=== PATIENT | male | born 1955 | race African-American/Black ===

== ENCOUNTER 2022-05-21 11:14 | Inpatient (IN) | payer BC, MEDICARE ==
[~2022-05-21] VITALS: Ht 172.7 cm; Wt 73.5 kg
[2022-05-21] VITALS (36 sets, daily range): BP systolic 94–141; BP diastolic 60–96
[2022-05-21] MEDS ORDERED: VANCOMYCIN 1G PREMIX 200 ML IV ONE (11:30)
[2022-05-21] MEDS ORDERED: PIPERACILLIN/TAZ 3.375G PREMIX 50 ML IV ONE (11:30)
[2022-05-21] MEDS ORDERED: NOREPINEPHRINE 8 MG in DEXT 5% WATER 242 ML IV STA (11:42)
[2022-05-21] MEDS ORDERED: SODIUM CHLORIDE 0.9% 1000ML BAG (SEPSIS BOLUS) IV ONE (11:45)
[2022-05-21] MEDS ORDERED: LIDOCAINE HCL/PF 1% 10 MG/ML 5ML VIAL ONE (11:58)
[2022-05-21] MEDS ORDERED: NOREPINEPHRINE 8MG/250ML PMX 250 ML IV SCH ×2 (12:00→12:45)
[2022-05-21 12:01] LABS: BASOPHILS % 0.1 % (0.0-2.0); EOSINOPHILS % 0.1 % (0.0-5.0); LYMPHOCYTES % 12.5 % (20.0-50.0); MEAN CORPUSCULAR HEMOGLOBIN 35.9 pg (28.0-32.0); MEAN CORPUSCULAR VOLUME 105.6 fL (80.0-94.0); MEAN PLATELET VOLUME 7.1 fl (7.4-10.4); MONOCYTES % 7.5 % (2.0-8.0); NEUTROPHILS % 79.8 % (40.0-76.0); PLATELET 330 x1000/uL (130-400); RED BLOOD CELL COUNT 1.67 mill/uL (4.7-6.1); RED CELL DISTRIBUTION WIDTH 17.6 % (11.6-14.6)
[2022-05-21 12:09] LABS: CHLORIDE 106 mEq/L (98-107)
[2022-05-21 12:17] LABS: HEMATOCRIT. 17.6 % (42.0-52.0)
[2022-05-21] MEDS ORDERED: NOREPINEPHRINE 8MG/250ML PMX 250 ML IV PRN (12:45)
[2022-05-21 12:47] LABS: INR 1.1; PROTHROMBIN TIME 12.2 sec (9.6-11.0)
[2022-05-21] MEDS ORDERED: VANCOMYCIN 1G PREMIX 200 ML IV NR (13:00)
[2022-05-21 14:37] LABS: CLARITY URINE CLEAR (CLEAR); COLOR URINE YELLOW (YELLOW); KETONES URINE NEGATIVE (NEGATIVE); LEUKOCYTE ESTERASE URINE NEGATIVE (NEGATIVE); NITRITE URINE NEGATIVE (NEGATIVE); OCCULT BLOOD URINE NEGATIVE (NEGATIVE); PROTEIN URINE NEGATIVE (NEGATIVE); SPECIFIC GRAVITY URINE 1.013 (1.005-1.030); UROBILINOGEN URINE 0.2 E.U./dL (0.2-1.0)
[2022-05-21] MEDS ORDERED: ONDANSETRON HCL 4MG/2ML INJ IV PRN (15:45)
[2022-05-21] MEDS ORDERED: IPRATROPIUM/ALBUTEROL 0.5-3(2.5)MG/3ML NEB HHN PRN (15:45)
[2022-05-21] MEDS ORDERED: ACETAMINOPHEN 650MG/20.3ML UDC GT PRN (15:45)
[2022-05-21] MEDS ORDERED: PIPERACILLIN/TAZOBACTAM 3.375 G in DEXTROSE 5% WATER 50 ML IV SCH (15:45)
[2022-05-21] MEDS: PANTOPRAZOLE SODIUM 40 MG/VIAL IV SCH (15:45)
[2022-05-21] MEDS ORDERED: SODIUM CHLORIDE 0.9% 1,000 ML IV SCH (16:00)
[2022-05-21] MEDS ORDERED: PHENYLEPHRINE 50 MG in DEXT 5% WATER 245 ML IV PRN (16:00)
[2022-05-21] MEDS ORDERED: DEXTROSE 50% WATER 50ML SYRINGE IV PRN (18:45)
[2022-05-21] MEDS: BLOOD SUGAR DIAGNOSTIC STRIP TEST SCH (21:00)
[2022-05-21 21:55] LABS: HEMATOCRIT 29.2 % (42.0-52.0); HEMOGLOBIN 9.5 g/dL (14.0-18.0)
[2022-05-21] MEDS: PIPERACILLIN/TAZOBACTAM 3.375 G in DEXTROSE 5% WATER 50 ML IV SCH (22:00)
[2022-05-21] MEDS: INSULIN LISPRO 100 UNITS/ML SUBCUT SCH (22:16)
[2022-05-21] MEDS ORDERED: DEXT 5%/0.2% NACL 1,000 ML IV SCH (23:30)
[2022-05-22] VITALS (81 sets, daily range): BP systolic 77–153; BP diastolic 46–113
[2022-05-22] MEDS ORDERED: VANCOMYCIN 750MG PREMIX 150 ML IV SCH
[2022-05-22] MEDS: DEXT 5%/0.9% NACL 1,000 ML IV SCH ×3 (00:23→21:23)
[2022-05-22] MEDS: PIPERACILLIN/TAZOBACTAM 3.375 G in DEXTROSE 5% WATER 50 ML IV SCH ×3 (05:34→22:54)
[2022-05-22 05:35] LABS: HEMATOCRIT. 27.1 % (42.0-52.0); HEMOGLOBIN. 8.8 g/dL (14.0-18.0); MEAN CORPUSCULAR HEMOGLOBIN 32.2 pg (28.0-32.0); MEAN CORPUSCULAR VOLUME 98.7 fL (80.0-94.0); MEAN PLATELET VOLUME 7.1 fl (7.4-10.4); PLATELET 283 x1000/uL (130-400); RED BLOOD CELL COUNT 2.75 mill/uL (4.7-6.1); RED CELL DISTRIBUTION WIDTH 18.7 % (11.6-14.6)
[2022-05-22] MEDS: BLOOD SUGAR DIAGNOSTIC STRIP TEST SCH ×4 (05:39→21:38)
[2022-05-22] MEDS: INSULIN LISPRO 100 UNITS/ML SUBCUT SCH ×4 (05:39→21:38)
[2022-05-22 05:48] LABS: CHLORIDE 118 mEq/L (98-107)
[2022-05-22] MEDS ORDERED: PHENYLEPHRINE 50 MG in DEXT 5% WATER 245 ML IV PRN (06:45)
[2022-05-22] MEDS: PANTOPRAZOLE SODIUM 40 MG/VIAL IV SCH (08:17)
[2022-05-22 08:27] LABS: BG BASE EXCESS -7.7 mmol/L (-2.0-2.0); BG CARBOXYHEMOGLOBIN 0.3 % (0.5-1.5); BG DEOXYHEMOGLOBIN 2.8 % (0.0-5.0); BG FRACTION INSPIRED OXYGEN 35; BG HCO3 ACT 17.6 mmol/L (22.0-26.0); BG METHEMOGLOBIN 0.4 % (0.0-1.5); BG OXYGEN SATURATION 97.2 % (92.0-98.5); BG OXYHEMOGLOBIN 96.5 % (94.0-97.0); BG PCO2 34.9 mmHg (35.0-45.0); BG PO2 103.4 mmHg (75.0-100.0); BG TOTAL HEMOGLOBIN 9.6 g/dL (12.0-18.0); BG VENT MODE T PIECE
[2022-05-22] MEDS: VANCOMYCIN 750MG PREMIX 150 ML IV SCH ×2 (09:38→21:22)
[2022-05-22] MEDS: IPRATROPIUM BROMIDE (0.02%) 0.5MG/2.5ML NEB HHN SCH ×3 (09:40→20:12)
[2022-05-22 12:21] LABS: PLATELET ESTIMATE NORMAL
[2022-05-23] VITALS (94 sets, daily range): BP systolic 44–154; BP diastolic 20–100
[2022-05-23] MEDS: IPRATROPIUM BROMIDE (0.02%) 0.5MG/2.5ML NEB HHN SCH ×4 (01:56→20:16)
[2022-05-23] MEDS: PIPERACILLIN/TAZOBACTAM 3.375 G in DEXTROSE 5% WATER 50 ML IV SCH ×3 (05:31→21:08)
[2022-05-23 06:13] LABS: BASOPHILS % 0.2 % (0.0-2.0); EOSINOPHILS % 0.3 % (0.0-5.0); HEMATOCRIT. 29.5 % (42.0-52.0); HEMOGLOBIN. 9.5 g/dL (14.0-18.0); LYMPHOCYTES % 8.5 % (20.0-50.0); MEAN CORPUSCULAR HEMOGLOBIN 32.7 pg (28.0-32.0); MEAN CORPUSCULAR VOLUME 101.5 fL (80.0-94.0); MEAN PLATELET VOLUME 7.2 fl (7.4-10.4); MONOCYTES % 7.9 % (2.0-8.0); NEUTROPHILS % 83.1 % (40.0-76.0); PLATELET 308 x1000/uL (130-400); RED BLOOD CELL COUNT 2.91 mill/uL (4.7-6.1); RED CELL DISTRIBUTION WIDTH 19.2 % (11.6-14.6)
[2022-05-23] MEDS: DEXT 5%/0.9% NACL 1,000 ML IV SCH ×2 (06:17→18:48)
[2022-05-23 06:30] LABS: CHLORIDE 124 mEq/L (98-107)
[2022-05-23] MEDS: BLOOD SUGAR DIAGNOSTIC STRIP TEST SCH ×4 (07:50→21:07)
[2022-05-23] MEDS: PANTOPRAZOLE SODIUM 40 MG/VIAL IV SCH (09:16)
[2022-05-23] MEDS: INSULIN LISPRO 100 UNITS/ML SUBCUT SCH ×4 (09:24→21:08)
[2022-05-23] MEDS: VANCOMYCIN 1GM PMX (XELLIA) 200 ML IV SCH ×2 (09:26→21:07)
[2022-05-23 11:32] LABS: BG BASE EXCESS -5.1 mmol/L (-2.0-2.0); BG CARBOXYHEMOGLOBIN 0.3 % (0.5-1.5); BG FRACTION INSPIRED OXYGEN 40; BG HCO3 ACT 19.3 mmol/L (22.0-26.0); BG METHEMOGLOBIN 0.5 % (0.0-1.5); BG OXYHEMOGLOBIN 98.2 % (94.0-97.0); BG PCO2 33.2 mmHg (35.0-45.0); BG PH 7.382 (7.350-7.450); BG PO2 217.9 mmHg (75.0-100.0); BG SAMPLE SITE RIGHT RADIAL; BG TOTAL HEMOGLOBIN 9.1 g/dL (12.0-18.0); BG VENT MODE T PIECE
[2022-05-23] MEDS: MIDODRINE HCL 5MG TABLET PO SCH ×3 (13:00→17:00)
[2022-05-24] VITALS (55 sets, daily range): BP systolic 100–166; BP diastolic 72–113
[2022-05-24] MEDS: DEXT 5%/0.9% NACL 1,000 ML IV SCH (02:34)
[2022-05-24] MEDS: IPRATROPIUM BROMIDE (0.02%) 0.5MG/2.5ML NEB HHN SCH ×4 (02:52→20:25)
[2022-05-24] MEDS: PIPERACILLIN/TAZOBACTAM 3.375 G in DEXTROSE 5% WATER 50 ML IV SCH ×3 (06:00→23:04)
[2022-05-24 06:04] LABS: BASOPHILS % 0.2 % (0.0-2.0); EOSINOPHILS % 0.5 % (0.0-5.0); HEMATOCRIT. 25.6 % (42.0-52.0); HEMOGLOBIN. 8.3 g/dL (14.0-18.0); MEAN CORPUSCULAR HEMOGLOBIN 32.8 pg (28.0-32.0); MEAN CORPUSCULAR VOLUME 101.2 fL (80.0-94.0); MEAN PLATELET VOLUME 6.8 fl (7.4-10.4); MONOCYTES % 7.1 % (2.0-8.0); NEUTROPHILS % 79.2 % (40.0-76.0); PLATELET 283 x1000/uL (130-400); RED BLOOD CELL COUNT 2.53 mill/uL (4.7-6.1); RED CELL DISTRIBUTION WIDTH 19.3 % (11.6-14.6)
[2022-05-24 06:31] LABS: CHLORIDE 129 mEq/L (98-107)
[2022-05-24] MEDS ORDERED: MAGNESIUM 1 G PREMIX 100 ML IV NR (08:00)
[2022-05-24] MEDS ORDERED: POTASSIUM CHLORIDE INJ 40 MEQ in DEXT 5% WATER 250 ML IV ONE (08:00)
[2022-05-24] MEDS: BLOOD SUGAR DIAGNOSTIC STRIP TEST SCH ×4 (08:09→21:00)
[2022-05-24] MEDS: MIDODRINE HCL 5MG TABLET PO SCH ×3 (08:52→17:00)
[2022-05-24] MEDS: PANTOPRAZOLE SODIUM 40 MG/VIAL IV SCH (08:53)
[2022-05-24] MEDS: VANCOMYCIN 1GM PMX (XELLIA) 200 ML IV SCH (08:53)
[2022-05-24] MEDS: INSULIN LISPRO 100 UNITS/ML SUBCUT SCH ×4 (08:57→23:20)
[2022-05-24] MEDS: DEXTROSE 5% WATER 1,000 ML IV SCH ×3 (09:07→23:19)
[2022-05-24] MEDS: KCL 20MEQ/100ML X 2 FOR TOTAL KCL 40MEQ/200ML IV SCH ×2 (11:21→13:09)
[2022-05-24] MEDS ORDERED: METOPROLOL TARTRATE 5MG/5ML VIAL IV PRN (20:00)
[2022-05-25] VITALS (36 sets, daily range): BP systolic 116–157; BP diastolic 64–112
[2022-05-25] MEDS: IPRATROPIUM BROMIDE (0.02%) 0.5MG/2.5ML NEB HHN SCH ×4 (02:07→21:13)
[2022-05-25 05:59] LABS: HEMATOCRIT 26.8 % (42.0-52.0); HEMOGLOBIN 8.8 g/dL (14.0-18.0); MEAN CORPUSCULAR HEMOGLOBIN 32.6 pg (28.0-32.0); MEAN CORPUSCULAR VOLUME 99.9 fL (80.0-94.0); PLATELET 287 x1000/uL (130-400); RED BLOOD CELL COUNT 2.69 mill/uL (4.7-6.1); RED CELL DISTRIBUTION WIDTH 18.6 % (11.6-14.6)
[2022-05-25] MEDS ORDERED: VANCOMYCIN 750MG PREMIX 150 ML IV SCH (06:00)
[2022-05-25 06:07] LABS: CHLORIDE 127 mEq/L (98-107)
[2022-05-25 06:12] LABS: PHOSPHORUS 2.1 mg/dL (2.5-4.9)
[2022-05-25] MEDS: PIPERACILLIN/TAZOBACTAM 3.375 G in DEXTROSE 5% WATER 50 ML IV SCH ×3 (06:29→21:16)
[2022-05-25] MEDS: BLOOD SUGAR DIAGNOSTIC STRIP TEST SCH ×4 (07:50→21:22)
[2022-05-25] MEDS ORDERED: POTASSIUM PHOS,M-BASIC-D-BASIC 20 MMOL in DEXT 5% WATER 243.3333 ML IV NR (08:30)
[2022-05-25] MEDS: PANTOPRAZOLE SODIUM 40 MG/VIAL IV SCH (08:54)
[2022-05-25] MEDS: INSULIN LISPRO 100 UNITS/ML SUBCUT SCH ×4 (08:57→21:26)
[2022-05-25] MEDS: MIDODRINE HCL 5MG TABLET PO SCH ×3 (09:00→17:00)
[2022-05-25] MEDS ORDERED: DEXTROSE 50% WATER 50ML SYRINGE IV PRN (12:30)
[2022-05-25] MEDS: DEXTROSE 5% WATER 1,000 ML IV SCH ×2 (13:03→23:14)
[2022-05-25] MEDS: COLISTIMETHATE SODIUM 150MG/VIAL INH SCH (21:31)
[2022-05-26] VITALS (47 sets, daily range): BP systolic 111–153; BP diastolic 72–110
[2022-05-26] MEDS: IPRATROPIUM BROMIDE (0.02%) 0.5MG/2.5ML NEB HHN SCH ×4 (01:31→20:13)
[2022-05-26] MEDS: PIPERACILLIN/TAZOBACTAM 3.375 G in DEXTROSE 5% WATER 50 ML IV SCH ×3 (05:53→21:51)
[2022-05-26] MEDS: BLOOD SUGAR DIAGNOSTIC STRIP TEST SCH ×4 (07:53→21:36)
[2022-05-26] MEDS: COLISTIMETHATE SODIUM 150MG/VIAL INH SCH ×2 (08:34→20:31)
[2022-05-26] MEDS: PANTOPRAZOLE SODIUM 40 MG/VIAL IV SCH (08:57)
[2022-05-26] MEDS: DEXTROSE 5% WATER 1,000 ML IV SCH ×2 (08:57→18:43)
[2022-05-26] MEDS: MIDODRINE HCL 5MG TABLET PO SCH ×4 (08:58→16:57)
[2022-05-26] MEDS: INSULIN LISPRO 100 UNITS/ML SUBCUT SCH ×3 (09:04→17:30)
[2022-05-26 13:31] LABS: CHLORIDE 115 mEq/L (98-107)
[2022-05-26] MEDS ORDERED: INSULIN GLARGINE 100 UNITS/ML SUBCUT SCH (22:00)
[2022-05-27] VITALS (45 sets, daily range): BP systolic 95–151; BP diastolic 54–117
[2022-05-27] MEDS: INSULIN LISPRO 100 UNITS/ML SUBCUT SCH ×7 (00:29→20:47)
[2022-05-27] MEDS: IPRATROPIUM BROMIDE (0.02%) 0.5MG/2.5ML NEB HHN SCH ×4 (00:49→20:43)
[2022-05-27] MEDS: DEXTROSE 5% WATER 1,000 ML IV SCH ×2 (02:47→15:44)
[2022-05-27] MEDS: BLOOD SUGAR DIAGNOSTIC STRIP TEST SCH ×4 (06:01→20:47)
[2022-05-27 06:04] LABS: BASOPHILS % 0.6 % (0.0-2.0); EOSINOPHILS % 1.4 % (0.0-5.0); HEMATOCRIT. 25.5 % (42.0-52.0); HEMOGLOBIN. 8.3 g/dL (14.0-18.0); LYMPHOCYTES % 17.5 % (20.0-50.0); MEAN CORPUSCULAR HEMOGLOBIN 33.1 pg (28.0-32.0); MEAN CORPUSCULAR VOLUME 101.6 fL (80.0-94.0); MEAN PLATELET VOLUME 7.6 fl (7.4-10.4); MONOCYTES % 6.2 % (2.0-8.0); NEUTROPHILS % 74.3 % (40.0-76.0); PLATELET 216 x1000/uL (130-400); RED BLOOD CELL COUNT 2.51 mill/uL (4.7-6.1); RED CELL DISTRIBUTION WIDTH 18.1 % (11.6-14.6)
[2022-05-27] MEDS: PIPERACILLIN/TAZOBACTAM 3.375 G in DEXTROSE 5% WATER 50 ML IV SCH ×2 (06:09→13:12)
[2022-05-27 06:33] LABS: CHLORIDE 111 mEq/L (98-107)
[2022-05-27] MEDS: MIDODRINE HCL 5MG TABLET PO SCH ×3 (09:53→18:22)
[2022-05-27] MEDS: PANTOPRAZOLE SODIUM 40 MG/VIAL IV SCH (09:53)
[2022-05-27] MEDS ORDERED: MAGNESIUM 1 G PREMIX 100 ML IV SCH (10:00)
[2022-05-27] MEDS: METOPROLOL TARTRATE 25MG TABLET PO SCH ×2 (10:52→20:47)
[2022-05-27] MEDS ORDERED: ENOXAPARIN 80MG/0.8ML SYR SUBCUT SCH (12:30)
[2022-05-27] MEDS: COLISTIMETHATE SODIUM 150MG/VIAL INH SCH (15:52)
== END 2022-05-28 00:30 | disposition short-term general hospital (02) | DRG 871 ==
LOC: ER 11:14 → MICUNO 14:15 → EDBEDREQTM 14:29 → EDBEDREQSVC 14:29 → EDBEDREQ 14:29 → ENRESERV 14:36 → MICUNO 15:59 → CVICU 05-23 02:30
PROVIDERS: ADMIT Hospitalist; ATTEND Hospitalist
PROC: 02HV33Z Insertion of Infusion Device into Superior Vena Cava, Percutaneous Approach (ICD-10-PCS; principal; 2022-05-21)
PROC: B548ZZA Ultrasonography of Superior Vena Cava, Guidance (ICD-10-PCS; 2022-05-21)
PROC: 30233N1 Transfusion of Nonautologous Red Blood Cells into Peripheral Vein, Percutaneous Approach (ICD-10-PCS; 2022-05-21)
DX: A41.89 Other specified sepsis (principal); E43 Unspecified severe protein-calorie malnutrition; L89.123 Pressure ulcer of left upper back, stage 3; L89.113 Pressure ulcer of right upper back, stage 3; L89.894 Pressure ulcer of other site, stage 4; R65.21 Severe sepsis with septic shock; J96.21 Acute and chronic respiratory failure with hypoxia; J15.1 Pneumonia due to Pseudomonas; J15.6 Pneumonia due to other Gram-negative bacteria; I48.20 Chronic atrial fibrillation, unspecified; E87.0 Hyperosmolality and hypernatremia; I50.32 Chronic diastolic (congestive) heart failure; I69.351 Hemiplegia and hemiparesis following cerebral infarction affecting right dominant side; Z16.24 Resistance to multiple antibiotics; T81.31XA Disruption of external operation (surgical) wound, not elsewhere classified, initial encounter; A41.59 Other Gram-negative sepsis; D63.8 Anemia in other chronic diseases classified elsewhere; I27.20 Pulmonary hypertension, unspecified; Z93.0 Tracheostomy status; E86.0 Dehydration; L89.890 Pressure ulcer of other site, unstageable; E11.9 Type 2 diabetes mellitus without complications; L89.150 Pressure ulcer of sacral region, unstageable; L89.896 Pressure-induced deep tissue damage of other site; E87.6 Hypokalemia; D53.9 Nutritional anemia, unspecified; L89.100 Pressure ulcer of unspecified part of back, unstageable; Y83.8 Other surgical procedures as the cause of abnormal reaction of the patient, or of later complication, without mention of misadventure at the time of the procedure; N28.1 Cyst of kidney, acquired; Z20.822 Contact with and (suspected) exposure to COVID-19; I11.0 Hypertensive heart disease with heart failure; I08.0 Rheumatic disorders of both mitral and aortic valves; I69.320 Aphasia following cerebral infarction; Z93.1 Gastrostomy status; Z68.24 Body mass index [BMI] 24.0-24.9, adult; Z93.3 Colostomy status; Y92.89 Other specified places as the place of occurrence of the external cause
CPT/HCPCS: 36415; 36573; 36600; 71045; 74176; 80048; 80053; 80202; 81003; 82270; 82375; 82805; 82962; 83605; 83735; 83880; 84100; 84134; 84145; 84439; 84443; 84484; 85014; 85018; 85025; 85027; 86850; 86900; 86920; 87070; 87077; 87186; 87426; 93005; 93306; 93923; 93970; 94640; 99291; A6261; C1725; C9113; C9803; J0770; J1650; J1815; J2370; J2543; J3370; J3475; J3480; J3490; J7030; J7042; J7060; J7070; P9016; A4315